=== PATIENT | male | born 1970 | race Caucasian/White ===

== ENCOUNTER 2023-01-05 14:40 | Emergency (ER) | payer OTHER ==
[~2023-01-05] VITALS: Ht 170.2 cm; Wt 68.2 kg
[2023-01-05 14:41] VITALS: TEMP 98
[2023-01-05] MEDS ORDERED: htn PO (14:42)
[2023-01-05] MEDS ORDERED: cholesterol PO (14:42)
[2023-01-05] MEDS ORDERED: IBUPROFEN 600 MG TABLET PO ONE (15:15)
[2023-01-05 15:45] VITALS: BP 124/84; PULSE 71; RESP 17
[2023-01-05] MEDS ORDERED: IBUP-1492 PO (15:55)
== END 2023-01-05 16:11 | disposition home or self-care (01) ==
LOC: EMS 14:45
DX: S40.012A Contusion of left shoulder, initial encounter (principal); E78.00 Pure hypercholesterolemia, unspecified; I10 Essential (primary) hypertension; W31.89XA Contact with other specified machinery, initial encounter; Y93.89 Activity, other specified; Y92.89 Other specified places as the place of occurrence of the external cause; Y99.8 Other external cause status
CPT/HCPCS: 99283

== ENCOUNTER 2023-05-18 21:15 | Emergency (ER) | payer OTHER ==
[~2023-05-18] VITALS: Ht 170.2 cm; Wt 75.0 kg
[2023-05-18 21:15] VITALS: TEMP 98.4
[~2023-05-18 21:15] MED LIST: IBUP-1492 PO; cholesterol PO; htn PO
[2023-05-18 22:04] LABS: EOSINOPHILS % (AUTO) 3.5 % (1.0-6.0); HEMATOCRIT 40.4 % (41-53); HEMOGLOBIN 13.9 g/dL (13.5-17.5); LYMPHOCYTES % (AUTO) 45.6 % (22.0-44.0)
[2023-05-18 22:07] LABS: BASOPHILS % (AUTO) 0.9 % (0.0-2.0); LYMPHOCYTES # (AUTO) 1.9 K/uL (1.0-4.8); MEAN CORPUSCULAR HEMOGLOBIN 30.7 pg (26.0-34.0); MEAN CORPUSCULAR HGB CONC 34.4 G/dL (31.0-37.0); MEAN CORPUSCULAR VOLUME 89 fL (80-100); MONOCYTES # (AUTO) 0.4 K/uL (0.1-1.0); NEUTROPHILS # (AUTO) 1.7 K/uL (1.8-7.7); PLATELET COUNT (AUTO) 157 K/uL (150-450); RED BLOOD CELL COUNT(AUTO) 4.53 MIL/uL (4.50-5.90); RED CELL DISTRIBUTION WIDTH 13.5 % (11.5-14.5); WHITE BLOOD COUNT (AUTO) 4.2 K/uL (4.5-11.0)
[2023-05-18 22:14] LABS: ANION GAP 11 mmol/L (8-16); CALCIUM, TOTAL 8.2 mg/dL (8.8-10.5); CARBON DIOXIDE 24 mmol/L (22-29); CHLORIDE 102 mmol/L (98-107); CREATININE 0.82 mg/dL (0.60-1.30); GLOMERULAR FILTR. RATE CALC > 60 mL/min (>60); GLUCOSE,RANDOM 140 mg/dL (70-110); POTASSIUM 3.4 mmol/L (3.5-5.1); SODIUM SERUM 137 mmol/L (136-145); UREA NITROGEN, BLOOD 6 mg/dL (7-18)
[2023-05-18 22:20] LABS: ALANINE AMINOTRANSFERASE 19 U/L (12-78); ALBUMIN 3.4 g/dL (3.4-5.0); ALKALINE PHOSPHATASE 70 U/L (46-116); ASPARTATE AMINOTRANSFERASE 25 U/L (15-37); BILIRUBIN,TOTAL 0.5 mg/dL (0.1-1.0); TOTAL PROTEIN, SERUM 7.1 g/dL (6.4-8.2)
[2023-05-18 22:21] LABS: TROPONIN I-HIGH SENSITIVITY 17 ng/L (<76)
[2023-05-18] MEDS ORDERED: PB/HYOSCY/ATR/SCOP/LIDO/MAALOX 55 ML BOTTLE PO ONE (23:00)
[2023-05-18 23:34] LABS: TROPONIN I-HIGH SENSITIVITY 19 ng/L (<76)
[2023-05-19 00:10] VITALS: BP 127/87; PULSE 80; RESP 18
== END 2023-05-19 00:12 | disposition home or self-care (01) ==
LOC: EMS 21:15
DX: K29.70 Gastritis, unspecified, without bleeding (principal); B96.89 Other specified bacterial agents as the cause of diseases classified elsewhere; R10.13 Epigastric pain; R07.89 Other chest pain; E78.00 Pure hypercholesterolemia, unspecified; I10 Essential (primary) hypertension
CPT/HCPCS: 99285; 71045; 80053; 84484; 85025; 36415; 93005; G0480